=== PATIENT | male | born 1980 | race Caucasian/White ===

== ENCOUNTER 2017-10-04 20:28 | Emergency (ER) | payer SELFPAY ==
[2017-10-04] MEDS ORDERED: Fluorescein Opthalmic Strip ONE (20:38)
== END 2017-10-04 21:39 | disposition home or self-care (01) ==
LOC: SCSER 20:28
DX: H10.33 Unspecified acute conjunctivitis, bilateral (principal); F32.9 Major depressive disorder, single episode, unspecified; F90.9 Attention-deficit hyperactivity disorder, unspecified type
CPT/HCPCS: 99283

== ENCOUNTER 2018-04-06 13:53 | Inpatient (IN) | payer SELFPAY ==
[2018-04-06 14:32] LABS: #Basophils 0.1 thou/uL (0.0-0.2); #Eosinphils 0.1 thou/uL (0.0-0.7); #Lymphocytes 1.7 thou/uL (1.20-3.40); #Monocytes 0.9 thou/uL (0.11-0.59); #Neutrophils 4.8 thou/uL (1.40-6.50); %Eosinophils 1.7 % (0.0-10.0); %Lymphocytes 22.6 % (21.0-51.0); %Monocytes 11.5 % (0.0-10.0); %Neutrophils 63.2 % (42.0-75.0); Hemoglobin 12.6 g/dL (14.0-18.0); Mean Corpuscular HGB CONC 33.4 g/dL (32.0-36.0); Mean Corpuscular Hemoglobin 28.6 pg (27.0-31.0); Mean Corpuscular Volume 85.6 fL (78.0-98.0); Mean Platelet Volume 6.8 fL (7.4-10.4); Platelet Count 263 thou/uL (130-400); RBC Distribution Width 11.3 % (11.5-14.5); Red Blood Cell (RBC) Count 4.42 mill/uL (4.70-6.10); White Blood Cell (WBC) Count 7.6 thou/uL (4.8-10.8)
[2018-04-06 14:47] LABS: ALT (SGPT) 20 U/L (8-55); AST (SGOT) 14 U/L (5-34); Albumin 3.9 g/dL (3.5-5.0); Alkaline Phosphatase 78 U/L (40-150); Anion Gap 15 mmol/L (10-20); BUN (Urea Nitrogen) 15 mg/dL (8.9-20.6); Bilirubin, Total 0.4 mg/dL (0.2-1.2); Calc. Creatinine Clearance 0 mL/min (70-130); Calcium 9.1 mg/dL (7.8-10.44); Carbon Dioxide 23 mmol/L (22-29); Chloride 105 mmol/L (98-107); Estimated GFR-MDRD Greater than 90; Globulin 3.4 g/dL (2.4-3.5); Glucose 105 mg/dL (70-105); Potassium 3.7 mmol/L (3.5-5.1); Protein, Total 7.3 g/dL (6.0-8.3); Sodium 139 mmol/L (136-145)
--- NOTE | 2018-04-06 15:06 | RAD ---
LEFT FOOT 3 VIEWS: HISTORY: Left foot injury. Bug bite with infection. FINDINGS: Lisfranc joint alignment is anatomic. Plantar arch is maintained. No acute fracture, dislocation, o r radiopaque foreign bodies are apparent. Bone island Is noted within the cuboid. IMPRESSION: No acute osseous abnormalities are demonstrated. POS: [facility]
[2018-04-06] MEDS ORDERED: diphenhydrAMINE 50 MG/ML VIAL ONE (15:21)
[2018-04-06] MEDS ORDERED: Acetaminophen 325 MG TAB PO PRN (16:27)
[2018-04-06] MEDS ORDERED: cloNIDine 0.1 MG TAB PO PRN (17:39)
[2018-04-06] MEDS ORDERED: Ondansetron ODT 4 MG TAB PO PRN (17:39)
[2018-04-06] MEDS: cefTRIAXone\\ROCEPHIN 1 GM in Sodium Chloride 0.9% 100 ML IVPB SCH (18:22)
[2018-04-06 18:27] VITALS: BMI 27.1
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
[2018-04-06] MEDS: Famotidine 20 MG TAB PO SCH (20:36)
[2018-04-06] MEDS: Vancomycin HCl 1.25 GM in Sodium Chloride 0.9% 250 ML 250 ML IVPB SCH (22:06)
[2018-04-07] MEDS: Vancomycin HCl 1.25 GM in Sodium Chloride 0.9% 250 ML 250 ML IVPB SCH ×3 (05:32→23:10)
[2018-04-07] MEDS: Famotidine 20 MG TAB PO SCH ×2 (09:53→21:11)
[2018-04-07] MEDS: Enoxaparin Sodium 40 MG/0.4 ML SYRINGE SC SCH (09:53)
--- NOTE | 2018-04-07 11:26 | PDOC.PN ---
- Subjective Encounter Start Date: 04/07/18 Encounter Start Time: 11:25 Mr. Gray was seen today in follow-up of cellulitis. He notes continued pain in his left leg. No new complaints. - Objective Resuscitation Status - Order Detail: 04/06/18 17:34 Resuscitation Status Routine Resuscitation Status: FULL: Full Resuscitation MAR Reviewed: Yes Vital Signs & Weight: Vital Signs (12 hours) Temp Pulse Resp BP Pulse Ox 04/07/18 09:38 95 04/07/18 07:40 98.2 F 69 18 93/55 L 95 04/07/18 04:00 98 F 77 16 98/60 93 L Weight Weight 178 lb 8 oz I&O: 04/06/18 04/07/18 04/08/18 06:59 06:59 06:59 Intake Total 990 Balance 990 Result Diagrams: 04/06/18 14:23 04/06/18 14:23 Phys Exam - Physical Examination Respiratory: no wheezing, no rales, no rhonchi, clear to auscultation bilateral Cardiovascular: RRR, no significant murmur, no rub Gastrointestinal: soft, non-tender, no distention, positive bowel sounds Musculoskeletal: pulses present, edema present Swelling is present, but diminished from yesterday, decreased redness good D.P. pulses, and good capillary refill Dx/Plan (1) Cellulitis of left lower leg Code(s): L03.116 - CELLULITIS OF LEFT LOWER LIMB Status: Acute (2) Narcolepsy Code(s): G47.419 - NARCOLEPSY WITHOUT CATAPLEXY Status: Acute - Plan * Cellulitis- improved- continue Rocephin and Vancomycin * Narcolepsy- stable .
[2018-04-07 13:10] LABS: Vancomycin, Trough 16.7 ug/mL
[2018-04-07] MEDS: cefTRIAXone\\ROCEPHIN 1 GM in Sodium Chloride 0.9% 100 ML IVPB SCH (17:39)
[2018-04-07] MEDS: diphenhydrAMINE 25 MG CAP PO PRN (21:45)
[2018-04-08] MEDS: Acetaminophen 325 MG TAB PO PRN ×2 (00:51→16:18)
[2018-04-08] MEDS: Vancomycin HCl 1.25 GM in Sodium Chloride 0.9% 250 ML 250 ML IVPB SCH ×3 (06:42→21:54)
[2018-04-08 08:17] LABS: #Basophils 0.1 thou/uL (0.0-0.2); #Eosinphils 0.1 thou/uL (0.0-0.7); #Lymphocytes 2.2 thou/uL (1.20-3.40); #Monocytes 0.9 thou/uL (0.11-0.59); #Neutrophils 2.9 thou/uL (1.40-6.50); %Eosinophils 2.2 % (0.0-10.0); %Lymphocytes 35.6 % (21.0-51.0); %Monocytes 14.3 % (0.0-10.0); %Neutrophils 46.9 % (42.0-75.0); Hemoglobin 11.3 g/dL (14.0-18.0); Mean Corpuscular HGB CONC 34.6 g/dL (32.0-36.0); Mean Corpuscular Hemoglobin 30.7 pg (27.0-31.0); Mean Corpuscular Volume 88.8 fL (78.0-98.0); Mean Platelet Volume 6.5 fL (7.4-10.4); Platelet Count 240 thou/uL (130-400); Red Blood Cell (RBC) Count 3.67 mill/uL (4.70-6.10); White Blood Cell (WBC) Count 6.2 thou/uL (4.8-10.8)
[2018-04-08 08:39] LABS: Anion Gap 9 mmol/L (10-20); BUN (Urea Nitrogen) 9 mg/dL (8.9-20.6); Calc. Creatinine Clearance 123 mL/min (70-130); Calcium 8.8 mg/dL (7.8-10.44); Carbon Dioxide 28 mmol/L (22-29); Chloride 106 mmol/L (98-107); Estimated GFR-MDRD Greater than 90; Glucose 96 mg/dL (70-105); Potassium 4.4 mmol/L (3.5-5.1); Sodium 139 mmol/L (136-145)
[2018-04-08] MEDS ORDERED: NALOXONE HCL PO SCH (09:00)
[2018-04-08] MEDS ORDERED: BUPRENORPHINE HCL PO SCH (09:00)
[2018-04-08] MEDS: Famotidine 20 MG TAB PO SCH ×2 (09:14→21:02)
[2018-04-08] MEDS: Enoxaparin Sodium 40 MG/0.4 ML SYRINGE SC SCH (09:15)
[2018-04-08] MEDS: diphenhydrAMINE 25 MG CAP PO PRN ×2 (09:34→21:08)
[2018-04-08 13:46] LABS: Vancomycin, Trough 39.8 ug/mL
--- NOTE | 2018-04-08 17:08 | PDOC.PN ---
- Subjective Encounter Start Date: 04/08/18 Encounter Start Time: 17:06 Mr. Gray was seen today in follow-up of cellulitis of the left leg. He does not have any complaints. - Objective Resuscitation Status - Order Detail: 04/06/18 17:34 Resuscitation Status Routine Resuscitation Status: FULL: Full Resuscitation MAR Reviewed: Yes Vital Signs & Weight: Vital Signs (12 hours) Temp Pulse Resp BP Pulse Ox 04/08/18 16:47 98.2 F 75 18 113/54 L 96 04/08/18 16:19 98.1 F 70 20 134/73 97 04/08/18 11:21 98.5 F 79 16 104/53 L 92 L 04/08/18 09:10 94 L 04/08/18 07:42 98.1 F 62 16 93/56 L 94 L Weight Weight 178 lb 8 oz I&O: 04/07/18 04/08/18 04/09/18 06:59 06:59 06:59 Intake Total 990 1450 Balance 990 1450 Result Diagrams: 04/08/18 08:04 04/08/18 08:04 Phys Exam - Physical Examination HEENT: PERRLA Respiratory: no wheezing, no rales, no rhonchi, clear to auscultation bilateral Cardiovascular: RRR, no significant murmur, no rub Gastrointestinal: soft, non-tender, no distention, positive bowel sounds Musculoskeletal: pulses present, edema present + mild erythema of the left lower extremity, improving swelling also improved Dx/Plan (1) Cellulitis of left lower leg Code(s): L03.116 - CELLULITIS OF LEFT LOWER LIMB Status: Acute (2) Narcolepsy Code(s): G47.419 - NARCOLEPSY WITHOUT CATAPLEXY Status: Acute - Plan * Cellulitis- Continue IV antibiotics one more day * Narcolepsy- stable * Anticipate discharge home tomorrow.
[2018-04-08] MEDS: cefTRIAXone\\ROCEPHIN 1 GM in Sodium Chloride 0.9% 100 ML IVPB SCH (18:15)
[2018-04-08 21:29] LABS: Vancomycin, Trough 10.3 ug/mL
[2018-04-09] MEDS: Vancomycin HCl 1.25 GM in Sodium Chloride 0.9% 250 ML 250 ML IVPB SCH ×2 (05:59→08:12)
[2018-04-09 07:54] VITALS: BP 110/65; TEMP 97.8
[2018-04-09] MEDS: Enoxaparin Sodium 40 MG/0.4 ML SYRINGE SC SCH (08:12)
[2018-04-09] MEDS: Famotidine 20 MG TAB PO SCH (08:12)
--- NOTE | 2018-04-09 13:16 | PDOC.PN ---
- Subjective Encounter Start Date: 04/09/18 Encounter Start Time: 13:14 Mr. Gray was seen today in follow-up of cellulitis, of the lower extremity. - Objective Resuscitation Status - Order Detail: 04/06/18 17:34 Resuscitation Status Routine Resuscitation Status: FULL: Full Resuscitation MAR Reviewed: Yes Vital Signs & Weight: Vital Signs (12 hours) Temp Pulse Resp BP Pulse Ox 04/09/18 08:00 93 L 04/09/18 07:51 97.8 F 69 18 110/65 93 L Weight Weight 178 lb 8 oz I&O: 04/08/18 04/09/18 04/10/18 06:59 06:59 06:59 Intake Total 1450 1280 360 Balance 1450 1280 360 Result Diagrams: 04/08/18 08:04 04/08/18 08:04 Phys Exam - Physical Examination HEENT: PERRLA Respiratory: no wheezing, no rales, no rhonchi, clear to auscultation bilateral Cardiovascular: RRR, no significant murmur, no rub Gastrointestinal: soft, non-tender, positive bowel sounds Musculoskeletal: pulses present, edema present + mild erthema of the left popliteal area, and medial thigh Dx/Plan (1) Cellulitis of left lower leg Code(s): L03.116 - CELLULITIS OF LEFT LOWER LIMB Status: Acute (2) Narcolepsy Code(s): G47.419 - NARCOLEPSY WITHOUT CATAPLEXY Status: Acute - Plan * Cellulitis of the left lower extremity- improving * Stable for discharge home and close follow-up..
--- NOTE | 2018-04-10 05:23 | DIS ---
DATE OF ADMISSION: 04/06/2018 DATE OF DISCHARGE: 04/09/2018 PRIMARY CARE PHYSICIAN: Latonya Gaspar MD. DISCHARGE DISPOSITION: Home. PRIMARY DISCHARGE DIAGNOSES: 1. Cellulitis of the left lower extremity. 2. Narcolepsy. 3. History of hypoglycemia. DISCHARGE MEDICATIONS: 1. Doxycycline 100 mg twice a day. 2. Sertraline 100 mg at bedtime. 3. Buprenorphine/naloxone 4 mg/1 mg one film daily. CODE STATUS: Full code. ALLERGIES: TO SERTRALINE. HOSPITAL COURSE: Mr. Gray is a pleasant 37-year-old and gentleman, who developed a cellulitis, likely as a result of having an ankle bracelet placed for probation. He was admitted and started on IV antibiotics. He had improvement in his symptoms. There was no evidence clinically of any deep abscess. X-ray of the foot did not show any evidence of osteomyelitis or subcutaneous air, and after he significantly improved, he was able to be discharged home with close outpatient followup. He gives a history of low blood glucose; however, this was not documented in his hospital stay here. I recommended that he have his primary care physician refer him to an corporate fitness program coordinator for this evaluation. Job ID: [id number]
== END 2018-04-09 17:01 | disposition home or self-care (01) | DRG 603 ==
LOC: SCSER 13:53 → T4-A 16:16
PROVIDERS: ADMIT Family Medicine; ATTEND Family Medicine
DX: L03.116 Cellulitis of left lower limb (principal); G47.419 Narcolepsy without cataplexy; F32.9 Major depressive disorder, single episode, unspecified; F90.9 Attention-deficit hyperactivity disorder, unspecified type; Z98.890 Other specified postprocedural states; Z88.8 Allergy status to other drugs, medicaments and biological substances; Z86.39 Personal history of other endocrine, nutritional and metabolic disease
CPT/HCPCS: 36415; 80048; 80053; 80202; 83605; 85025; 86140; 96365; 96375; J0696; J1200; J1650; J3370; J7050

== ENCOUNTER 2018-05-09 09:04 | Emergency (ER) | payer SELFPAY ==
[2018-05-09] MEDS ORDERED: Erythromycin Base 0.5% Oint 1 GM TUBE ONE ×2 (09:16→11:13)
[2018-05-09] MEDS ORDERED: Ketorolac Tromethamine 60 MG/2 ML VIAL ONE (09:38)
[2018-05-09] MEDS ORDERED: Proparacaine 0.5% Opth 15 ML BOT ONE ×2 (10:08→10:20)
== END 2018-05-09 11:26 | disposition home or self-care (01) ==
LOC: ERS 09:04
DX: T15.92XA Foreign body on external eye, part unspecified, left eye, initial encounter (principal); T15.91XA Foreign body on external eye, part unspecified, right eye, initial encounter; F32.9 Major depressive disorder, single episode, unspecified; F90.9 Attention-deficit hyperactivity disorder, unspecified type; Z79.899 Other long term (current) drug therapy
CPT/HCPCS: 96372; J1885

== ENCOUNTER 2018-08-24 22:44 | Emergency (ER) | payer OTHER, SELFPAY ==
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
== END 2018-08-24 23:55 | disposition home or self-care (01) ==
LOC: EEVIPCON 22:44 → ERS 22:44
DX: S00.83XA Contusion of other part of head, initial encounter (principal); F32.9 Major depressive disorder, single episode, unspecified; F90.9 Attention-deficit hyperactivity disorder, unspecified type; W01.0XXA Fall on same level from slipping, tripping and stumbling without subsequent striking against object, initial encounter
CPT/HCPCS: 70450; 72125

== ENCOUNTER 2022-04-09 10:35 | Emergency (ER) | payer SELFPAY ==
[2022-04-09 11:27] LABS: #Basophils 0.1 thou/uL (0.0-0.2); #Eosinphils 0.2 thou/uL (0.0-0.7); #Lymphocytes 1.5 thou/uL (1.20-3.40); #Monocytes 0.6 thou/uL (0.11-0.59); %Eosinophils 3.5 % (0.0-10.0); %Lymphocytes 28.6 % (21.0-51.0); %Monocytes 11.3 % (0.0-10.0); %Neutrophils 55.7 % (42.0-75.0); Hemoglobin 14.7 g/dL (14.0-18.0); Mean Corpuscular HGB CONC 34.4 g/dL (32.0-36.0); Mean Corpuscular Hemoglobin 31.5 pg (27.0-31.0); Mean Corpuscular Volume 91.7 fl (78.0-98.0); Platelet Count 234 10x3/uL (130-400); RBC Distribution Width 12.4 % (11.5-14.5); Red Blood Cell (RBC) Count 4.65 mill/uL (4.70-6.10); White Blood Cell (WBC) Count 5.3 10x3/uL (4.8-10.8)
[2022-04-09 11:49] LABS: ALT (SGPT) 37 U/L (8-55); AST (SGOT) 22 U/L (5-34); Albumin 4.1 g/dL (3.5-5.0); Alkaline Phosphatase 51 U/L (40-110); Anion Gap 10 mmol/L (10-20); BUN (Urea Nitrogen) 14 mg/dL (8.9-20.6); Bilirubin, Total 0.3 mg/dL (0.2-1.2); Calc. Creatinine Clearance 0 mL/min (70-130); Carbon Dioxide 26 mmol/L (22-29); Chloride 106 mmol/L (98-107); Estimated GFR 110; Globulin 3.1 g/dL (2.4-3.5); Glucose 107 mg/dL (70-105); Lipase 38 U/L (8-78); Potassium 3.9 mmol/L (3.5-5.1); Protein, Total 7.2 g/dL (6.0-8.3); Sodium 138 mmol/L (136-145)
[2022-04-09] MEDS ORDERED: Aspirin 81 mg Enteric Coated Tablet ONE (12:20)
[2022-04-09] MEDS ORDERED: LORazepam 2 MG/ML SYR.(CARPUJECT) ONE (12:20)
[2022-04-09] MEDS ORDERED: Nitroglycerin 2% Ointment 1 INCH/1 GM Packet ONE (12:20)
[2022-04-09 14:12] LABS: Troponin I Less than 0.010 ng/mL (< 0.028)
== END 2022-04-09 14:48 | disposition home or self-care (01) ==
LOC: ERS 10:35
DX: R07.9 Chest pain, unspecified (principal); F17.220 Nicotine dependence, chewing tobacco, uncomplicated
CPT/HCPCS: 36415; 71045; 80053; 83690; 84484; 85025; 93005; 96374; J2060